=== PATIENT | male | born 1980 | race Asian ===

== ENCOUNTER 2025-05-23 22:19 | Emergency (ER) | payer OTHER ==
[~2025-05-23] VITALS: Ht 172.7 cm; Wt 98.0 kg
[2025-05-23 23:30] VITALS: BP 148/106; PULSE 103; RESP 16; TEMP 98.805344; O2SAT 97
[2025-05-23] MEDS ORDERED: HYDR-4062 PO (23:44)
[2025-05-23] MEDS ORDERED: IBUP-1493 PO (23:44)
[2025-05-23] MEDS ORDERED: AMOX500C2 PO (23:44)
[2025-05-23] MEDS: CefTRIAXone SODIUM 1 GM/VIAL IM ONE (23:48)
[2025-05-23] MEDS: IBUPROFEN 800 MG TABLET PO ONE (23:48)
[2025-05-23] MEDS: HYDROCODONE/ACETAMINOPHEN 5-325 MG TABLET PO ONE (23:48)
[2025-05-23] MEDS: LIDOCAINE/PF 1% 2 ML VIAL IM ONE (23:49)
== END 2025-05-23 23:54 | disposition home or self-care (01) ==
LOC: EMS 22:55
DX: L03.811 Cellulitis of head [any part, except face] (principal)
CPT/HCPCS: 99283; 96372; J0696; J3490